=== PATIENT | female | born 1990 | race Caucasian/White ===

== ENCOUNTER 2025-10-27 02:08 | Emergency (ER) | payer SELFPAY ==
[~2025-10-27] VITALS: Ht 154.9 cm; Wt 58.1 kg
[2025-10-27 02:48] VITALS: BP 101/64
[2025-10-27] MEDS ORDERED: DICL100G61 TP (04:14)
[2025-10-27] MEDS ORDERED: ACETAMINOPHEN 325 MG TABLET ONE (04:18)
[2025-10-27] MEDS ORDERED: IBUPROFEN 600 MG TABLET ONE (04:19)
[2025-10-27] MEDS: IBUPROFEN 600 MG TABLET PO ONE (04:24)
[2025-10-27] MEDS: ACETAMINOPHEN 325 MG TABLET PO ONE (04:24)
[2025-10-27 04:55] VITALS: BP 110/70; O2SAT 99
== END 2025-10-27 04:35 | disposition home or self-care (01) ==
LOC: ER 02:22
DX: S93.402A Sprain of unspecified ligament of left ankle, initial encounter (principal); S39.012A Strain of muscle, fascia and tendon of lower back, initial encounter; S63.502A Unspecified sprain of left wrist, initial encounter; W18.30XA Fall on same level, unspecified, initial encounter; Y93.89 Activity, other specified; Y92.89 Other specified places as the place of occurrence of the external cause; Y99.9 Unspecified external cause status
CPT/HCPCS: 73100; 73600; A4606; A4663